=== PATIENT | male | born 1995 | race Caucasian/White ===

== ENCOUNTER 2016-10-07 09:41 | Emergency (ER) | payer OTHER ==
[~2016-10-07] VITALS: Ht 157.5 cm; Wt 78.8 kg
[2016-10-07 09:51] VITALS: Ht 157.5 cm; Wt 78.8 kg
[2016-10-07] MEDS ORDERED: IBUPROFEN 600 MG TAB PO ONE (11:30)
[2016-10-07] MEDS ORDERED: LIDOCAINE 1% (MDV) 20 ML INJ SC ONE (11:30)
--- NOTE | 2016-10-07 12:23 | RADRPT ---
PROCEDURE: Forearm radiograph series. CLINICAL INDICATION: Right forearm pain after laceration TECHNIQUE: AP and lateral views of the right forearm were obtained. COMPARISON: No prior studies are available for comparison. FINDINGS: There is normal mineralization and alignment of the bones of the right forearm. There is no evidenc e of acute fracture or dislocation. Suboptimally visualized joints appear within normal limits. Th ere is soft tissue swelling and suggested soft tissue defect on the volar surface of the arm compati ble with history of laceration. IMPRESSION: 1. Soft tissue abnormality without evidence of underlying fracture or dislocation. RPTAT: KK .Alejandro Quiñones MD, MD Date Time Electronically viewed and signed by .Alejandro Quiñones MD, on 10/07/2016 12:22 .B/
[2016-10-07] MEDS ORDERED: LIDOCAINE 1%/EPI (MDV) 20 ML INJ SC ONE (13:30)
[2016-10-07] MEDS ORDERED: LIDOCAINE 1%/EPI 30 ML INJ SC ONE (13:30)
--- NOTE | 2016-10-07 13:54 | ERD ---
ER Documentation Chief Complaint Date/Time DATE: 10/07/16 Chief Complaint Right forearm laceration HPI The patient is a 21-year-old male who presents to the Emergency Department with a laceration to the right forearm. The patient reports that while at work today , he accidentally lost his balance, and his right hand went through a nearby window, causing a laceration to the forearm. The patient notes that he quickly wrapped the laceration and was brought to the ED. He denies any numbness or weakness to the distal extremity, though does report subjective decreased sensation to the proximal right thumb. He denies any restricted range of motion. The patient rates his current pain as 4/10, and has not yet taken any medication for pain relief. Tetanus status is up-to-date. ROS All systems reviewed and are negative except as per history of present illness. Allergies Allergies: Coded Allergies: No Known Allergy (Unverified , 10/07/16) PMhx/Soc Medical and Surgical Hx: pt denies Medical Hx, pt denies Surgical Hx History of Surgery: No Anesthesia Reaction: No Hx Neurological Disorder: No Hx Respiratory Disorders: No Hx Cardiac Disorders: No Hx Psychiatric Problems: No Hx Miscellaneous Medical Probl: No Hx Alcohol Use: No Hx Substance Use: No Hx Tobacco Use: Yes (1 pack a day) Smoking Status: Current every day smoker Physical Exam Vitals Vital Signs Date Time Temp Pulse Resp B/P Pulse Ox O2 Delivery O2 Flow Rate FiO2 10/07/16 14:03 98.1 77 18 122/76 99 Room Air 10/07/16 09:51 98.1 86 18 121/79 99 Physical Exam GENERAL: Well-developed, well-nourished, in no acute distress HEENT: Head is normocephalic, atraumatic. No scleral pallor or icterus. Conjunctiva pink. Moist mucous membranes. NECK: Supple. Full range of motion. RESPIRATORY: Normal expiratory effort. CARDIOVASCULAR: Normal peripheral perfusion. EXTREMITIES: No clubbing, cyanosis, or edema. Normal skin perfusion. Full range of motion of both the upper and lower extremities bilaterally. Muscle tone is normal. No focal swelling or erythema. Distal pulses are palpable, 2+ bilaterally. Capillary refill is less than 2 seconds. NEUROLOGIC: The patient is alert, awake, and oriented x 3. No focal neurologic deficits. Motor intact. Sensation grossly intact, though patient does report subjective decreased sensation upon palpation of the proximal right thumb. INTEGUMENT: 8 cm linear deep laceration to the right forearm. No underlying tendon injury noted. No arterial injury visualized. Radial and ulnar pulses 2+. PSYCHIATRIC: Appropriate; Cooperative. Results 24 hrs Current Medications Medications (Trade) Dose Ordered Sig/Jean Paul Route PRN Reason Start Time Stop Time Status Last Admin Dose Admin Lidocaine (Xylocaine 1% (Mdv) 20 ml) 20 ml ONCE ONCE SC 10/07/16 11:30 10/07/16 11:32 DC Ibuprofen (Motrin) 600 mg ONCE ONCE PO 10/07/16 11:30 10/07/16 11:32 DC 10/07/16 11:38 Lidocaine/ Epinephrine (Xylocaine 1%/ Epi (Mdv) 20 ml) 20 ml ONCE ONCE SC 10/07/16 13:30 10/07/16 13:30 DC Lidocaine/ Epinephrine (Xylocaine 1%/ Epi) 20 ml ONCE ONCE SC 10/07/16 13:30 10/07/16 13:31 DC Bacitracin (Bacitracin Oint (Ud)) 1 applic ONCE ONCE TOP 10/07/16 14:00 10/07/16 14:01 DC 10/07/16 13:56 Procedures/MDM EMERGENCY DEPARTMENT COURSE: The patient was stable throughout the ER course. He was given ibuprofen for pain control. X-ray imaging performed. The wound was thoroughly cleansed and irrigated and a laceration repair was performed. On reassessment the patient was sitting comfortably. DIAGNOSTIC TESTS AND INTERPRETATION: PROCEDURE: Forearm radiograph series. CLINICAL INDICATION: Right forearm pain after laceration TECHNIQUE: AP and lateral views of the right forearm were obtained. COMPARISON: No prior studies are available for comparison. FINDINGS:There is normal mineralization and alignment of the bones of the right forearm. There is no evidence of acute fracture or dislocation. Suboptimally visualized joints appear within normal limits. There is soft tissue swelling and suggested soft tissue defect on the volar surface of the arm compatible with history of laceration. IMPRESSION: Soft tissue abnormality without evidence of underlying fracture or dislocation. .Alejandro Quiñones MD, Date Time Electronically viewed and signed by .Alejandro Quiñones MD, on 2016 12:22 PROCEDURE NOTE: Laceration repair. INDICATIONS: 8 cm linear laceration to the right forearm. CONSENT: Consent was obtained from the patient prior to the procedure. Indications, risks and benefits were explained at length. PROCEDURAL SUMMARY: A time out protocol was performed prior to initiating the procedure. The patient was positioned appropriately. The site was anesthetized with 5 mL of 1% lidocaine without epinephrine and 5 mL 1% lidocaine with epinephrine. Normal saline was used for wound irrigation. The wound was then explored, and no foreign body visualized, no tendon injury. The area was prepared and draped in the usual sterile manner with the wound exposed. Ten 4-0 simple interrupted Vicryl sutures, and twelve 4-0 simple interrupted Prolene sutures are placed in two layers with good wound closure and good wound approximation. Bleeding was minimal. The patient tolerated the procedure well without complications. The wound was dressed with bacitracin and sterile gauze. Standard post procedure care was explained and return precautions were given. On re-evaluation, the patient was resting comfortable with no pain localized to the site of injury. He was neurovascularly intact post-procedure. However, he did continue to report subjective decreased sensation to the proximal aspect of the right thumb, and was therefore advised to follow up with PMD as an outpatient for further evaluation. MEDICAL DECISION MAKING: This is a 21-year-old male presenting to the emergency department with a laceration to the right forearm that was sutured. The patient had good wound closure and wound approximation, and tolerated the procedure well. Standard post-procedure care was explained to the patient's parent at length. At this time the patient in stable condition and therefore can be discharged home with strict return precautions for signs of infection, uncontrollable pain, or any form of worsening or deteriorating condition. The patient is advised to follow-up in 2 days for wound check, reevaluation and further management and then again in 14 days for suture removal, or to return to the ER sooner for any worsening symptoms. I shared my medical decision making and plan with the patient at length and in great detail and the patient verbally understands and agrees with the plan for further observation and care as an outpatient. At the time of discharge all questions were answered. Departure Diagnosis: Primary Impression: Laceration of right forearm Encounter type: initial encounter Qualified Code: S51.811A - Laceration of right forearm, initial encounter Condition: Stable Patient Instructions: Laceration, Extrem (Suture, Staple, Or Tape) Additional Instructions: Follow up in 2 days for wound check, reevaluation and further management. Suture removal in 14 days. Return to the ED sooner for any new or worsening symptoms, development of redness, warmth, swelling, drainage, fevers, vomiting. JENNA LUNDBERG PA-C Oct 07, 2016 13:54
[2016-10-07] MEDS ORDERED: BACITRACIN 0.9 GM OINT TOP ONE (14:00)
[2016-10-07 14:03] VITALS: BP 122/76; PULSE 77; RESP 18; TEMP 98.1
== END 2016-10-07 14:02 | disposition home or self-care (01) ==
LOC: FTE 09:41
DX: S51.811A Laceration without foreign body of right forearm, initial encounter (principal); F17.210 Nicotine dependence, cigarettes, uncomplicated; W26.9XXA Contact with unspecified sharp object(s), initial encounter; Y92.89 Other specified places as the place of occurrence of the external cause
CPT/HCPCS: 12004; 73090; Z7610

== ENCOUNTER 2016-10-09 07:48 | Emergency (ER) | payer OTHER ==
[~2016-10-09] VITALS: Wt 81.0 kg
--- NOTE | 2016-10-09 08:09 | ERD ---
ER Documentation Chief Complaint Date/Time DATE: 10/09/16 TIME: 08:05 Chief Complaint SUTURE RECEHCK TO R FOREARM HPI This is a 21-year-old male who presents the emergency department today for a wound check of sutures that he had placed 2 days ago. Patient denies taking any antibiotics. Denies any fevers or chills. ROS All systems reviewed and are negative except as per history of present illness. Allergies Allergies: Coded Allergies: No Known Allergy (Unverified , 10/07/16) PMhx/Soc Medical and Surgical Hx: pt denies Medical Hx, pt denies Surgical Hx History of Surgery: No Anesthesia Reaction: No Hx Neurological Disorder: No Hx Respiratory Disorders: No Hx Cardiac Disorders: No Hx Psychiatric Problems: No Hx Miscellaneous Medical Probl: No Hx Alcohol Use: No Hx Substance Use: No Hx Tobacco Use: Yes (1 pack a day) Smoking Status: Current every day smoker Physical Exam Vitals Vital Signs Date Time Temp Pulse Resp B/P Pulse Ox O2 Delivery O2 Flow Rate FiO2 10/09/16 07:51 98.0 78 18 118/74 99 Physical Exam Const: No acute distress Head: Atraumatic Eyes: Normal Conjunctiva ENT: Normal External Ears, Nose and Mouth. Neck: Full range of motion..~ No meningismus. Resp: Clear to auscultation bilaterally Cardio: Regular rate and rhythm, no murmurs Skin: Right arm with evidence of 12 sutures placed. No effusion. No ecchymosis. No erythema or warmth. No purulent drainage. Ext: Right arm with no obvious deformity. No effusion. No ecchymosis. Evidence of sutures placed. No erythema or warmth. No purulent drainage. Distal neurovascularly intact. Good cap refill. Neur: Awake and alert Psych: Normal Mood and Affect Procedures/MDM This a 21-year-old male who presents to the emergency department today for a wound check of sutures that he had placed here in the emergency department 2 days ago after putting his arm through a glass windshield. Patient indicated there are subcuticular sutures as well. Patient is afebrile and otherwise well- appearing. He has no neurologic deficits in his forearm and he is able to make a thumbs up, a okay sign and cross his middle finger. Low suspicion for tendon involvement or neurologic involvement at this time. Patient appears to be healing well and is well approximated with no purulent drainage erythema or warmth. Low suspicion for cellulitis, sepsis, deep space infection. Patient's wound was dressed here in the emergency department. He was instructed to keep the wound clean and dry and return in 5-7 days for suture removal. At this time the patient is stable for discharge and outpatient management. Patient should follow up with their PCP in the next 1-2 days. They may return to the emergency department sooner for any persistent or worsening of symptoms. Patient understood and agreed with the plan. Departure Diagnosis: Primary Impression: Encounter for wound re-check Patient Instructions: Wound Check, Lac F/U (No Infection) Referrals: [facility] YOU HAVE RECEIVED A MEDICAL SCREENING EXAM AND THE RESULTS INDICATE THAT YOU DO NOT HAVE A CONDITION THAT REQUIRES URGENT TREATMENT IN THE EMERGENCY DEPARTMENT. FURTHER EVALUATION AND TREATMENT OF YOUR CONDITION CAN WAIT UNTIL YOU ARE SEEN IN YOUR DOCTORS OFFICE WITHIN THE NEXT 1-2 DAYS. IT IS YOUR RESPONSIBILITY TO MAKE AN APPOINTMENT FOR FOLOW-UP CARE. IF YOU HAVE A PRIMARY DOCTOR --you should call your primary doctor and schedule an appointment IF YOU DO NOT HAVE A PRIMARY DOCTOR YOU CAN CALL OUR PHYSICIAN REFERRAL HOTLINE AT IF YOU CAN NOT AFFORD TO SEE A PHYSICIAN YOU CAN CHOSE FROM THE FOLLOWING [facility] [address] [facility]. [facility] [address] [facility] [facility] [address] [facility] [facility] [address] [facility]. [facility] [address]. [facility]. [address] Additional Instructions: Call your primary care doctor TOMORROW for an appointment during the next 1-2 days.See the doctor sooner or return here if your condition worsens before your appointment time. Keep wound clean and dry Suture removal in 5-7 days COLIN SNOW PA-C Oct 09, 2016 08:09
== END 2016-10-09 08:22 | disposition home or self-care (01) ==
LOC: FTE 07:48
DX: Z48.01 Encounter for change or removal of surgical wound dressing (principal); F17.210 Nicotine dependence, cigarettes, uncomplicated
CPT/HCPCS: 99281

== ENCOUNTER 2016-10-17 15:42 | Emergency (ER) | payer OTHER ==
[~2016-10-17] VITALS: Wt 75.0 kg
[2016-10-17] MEDS ORDERED: CEPH-443 PO (15:57)
[2016-10-17] MEDS ORDERED: BACTDS PO (15:57)
[2016-10-17] MEDS ORDERED: MUPI22OI2 TOP (15:57)
[2016-10-17] MEDS ORDERED: BACITRACIN 0.9 GM OINT TOP ONE (16:00)
--- NOTE | 2016-10-17 16:05 | ERD ---
ER Documentation Chief Complaint Date/Time DATE: 10/17/16 TIME: 16:02 Chief Complaint SUTURE REMOVAL TO R FOREARM HPI 21-year-old male presents emergency department for suture removal from the right forearm from a laceration from accidentally falling into the window. X- rays were obtained, there is no fracture. He states that there is a yellow drainage over the last few days. He has been applying different types of gauze , using electrical tape as well as paper towels to wrap the wound. He denies any fevers or chills. ROS All systems reviewed and are negative except as per history of present illness. Medications Home Meds Active Scripts Mupirocin* (Bactroban*) 2% -22 Gram Oint...g., 1 APPLIC TOP BID for 7 Days, EA Prov:MEY PELAYO PA-C 10/17/16 Sulfamethoxazole-Trimethoprim* (Bactrim* DS) 800-160 Mg Tab, 1 TAB PO BID for 7 Days, TAB Prov:MEY PELAYO PA-C 10/17/16 Cephalexin* (Keflex*) 500 Mg Capsule, 500 MG PO QID for 7 Days, CAP Prov:MEY PELAYO PA-C 10/17/16 Allergies Allergies: Coded Allergies: No Known Allergy (Unverified , 10/07/16) PMhx/Soc History of Surgery: No Anesthesia Reaction: No Hx Neurological Disorder: No Hx Respiratory Disorders: No Hx Cardiac Disorders: No Hx Psychiatric Problems: No Hx Miscellaneous Medical Probl: No Hx Alcohol Use: No Hx Substance Use: No Hx Tobacco Use: Yes (1 pack a day) Physical Exam Vitals Vital Signs Date Time Temp Pulse Resp B/P Pulse Ox O2 Delivery O2 Flow Rate FiO2 10/17/16 15:49 98.0 71 18 129/71 99 Physical Exam General: Well-developed, well-nourished. The patient appears in no acute distress. HEENT: Head is normocephalic, atraumatic. No scleral icterus. Neck: Supple. Nontender. Lungs: Clear to auscultation. Normal air movement. Heart: Regular rate and rhythm. S1 and S2 are normal. No murmurs, gallops, or rubs. Abdomen: Nondistended. Extremities: Right forearm is a 8 cm linear laceration, sutures are intact, there is slight crusting, surrounding erythema, no fluctuance. No dehiscence. Neurologic: Alert and oriented 3. No focal deficits. Normal speech and gait. Skin: Normal turgor. No rash or lesions. Results 24 hrs Current Medications Medications (Trade) Dose Ordered Sig/Jean Paul Route PRN Reason Start Time Stop Time Status Last Admin Dose Admin Bacitracin (Bacitracin Oint (Ud)) 1 applic ONCE ONCE TOP 10/17/16 16:00 10/17/16 16:01 DC Procedures/MDM ED course: Wound care was then, patient's wound was irrigated copiously with hydrogen peroxide, bacitracin and clean dressing was applied. Suture Removal by me: Sutures removed with tweezers and scissors without incident. Wound shows early signs of infection at this time. There is no dehiscence, abscess appreciated. Sutures removed at this time addressing and wound care was done. Patient was advised to recheck the wound in 2 days. Departure Diagnosis: Primary Impression: Encounter for removal of sutures Condition: Good Patient Instructions: Suture Removal, Infected Additional Instructions: Follow up in 2 days in your clinic for wound check. MEY PELAYO PA-C Oct 17, 2016 16:04
== END 2016-10-17 15:54 | disposition home or self-care (01) ==
LOC: E/R 15:42
DX: Z48.02 Encounter for removal of sutures (principal); F17.210 Nicotine dependence, cigarettes, uncomplicated
CPT/HCPCS: 99281